=== PATIENT | male | born 1955 | race Caucasian/White ===

== ENCOUNTER 2017-05-02 18:05 | Inpatient (IN) | payer OTHER ==
[2017-05-02 18:14] VITALS: BMI 54.2
--- NOTE | 2017-05-02 18:32 | DR.GENAD ---
HPI - PCP Primary Care Physician: kathryn chamberlain - HPI Comment HPI Comment: PATIENT IS WEAK AND NOT FEELING WELL. - Complaint/Symptoms Chief Complaint Doctors Comments: CHEST PAIN SOB ABD WORSENING EDEMA TIMES 2 DAYS. SLURRED SPEECH ALL DAY GETTING CLEAR NOW. Chief Complaint:: "pt said his o2 has been low he is hurting in his chest and shoulder pain" - Nurses notes reviewed Nurses Notes Review: Yes - Source History Provided: Family Member - Mode of Arrival Mode of Arrival: Ambulatory - Timing Onset of Chief Complaint: 05/01/17 Came on: Gradually - Duration Duration: Constant Duration: Days - Severity Severity: Moderate PMH - PMH Past Medical History: Yes Past Medical History: Diabetes, Hypertension, [place] Past Medical History Comment: kidney prob, lung porb back pain, Past Surgical History: Yes Surgical History: Angioplasty/Stents - Family History History of Family Medical Conditions: Yes Family Medical History: Diabetes Mellitus - Social History Does patient currently use any type of tobacco product: No Have you used tobacco products in the last 12 months: No Type of Tobacco Use: None Does any household member use tobacco: No Alcohol Use: None Do you use any recreational Drugs:: No Lives With: Family Lives Where: Home - infectious screening In the last 2 months have you had wt loss of >10#?: NO Have you had fever, night sweats or hemotysis?: No Have you traveled outside the country in the last 6 months?: No Isolation: Standard ROS - Review of Systems Constitutional: Malaise, Weakness, Fatigue. negative: Chills, Fever Eyes: negative: Eye Pain, Discharge ENTM: negative: Ear Pain, Nose Discharge, Nose Congestion, Throat Pain Respiratoy: Non-Productive Cough, Short of Breath, Wheezing. negative: Hemoptysis Cardiovascular: Chest Pain, Edema Gastrointestinal/Abdominal: negative: Abdominal Pain, Diarrhea, Nausea, Vomiting Genitourinary: negative: Dysuria, Hematuria Neurological: Headache, Weakness, Dizziness, Speech Problem Musculoskeletal: Muscle Pain Integumentary: Change in Color Hematologic/Lymphatic: Easy Bleeding, Easy Bruising Endocrine: Increased Thirst, Increased Urine. negative: Flushing All Other Systems: Reviewed and Negative PE - Vital Signs Vitals: Temperature 98 F Pulse Rate [Apical] 113 Pulse Rate 114 Respiratory Rate 18 Blood Pressure [Right Arm] 163/79 Blood Pressure 162/70 O2 Sat by Pulse Oximetry 96 - General Limitations: No Limitations General Appearance: Alert - Head Head Exam: Normal Inspection - Eyes Eye exam: Normal Appearance - ENT ENT Exam: Normal External Ear Exam External Ear Exam: Normal External Inspection TM/Canal Exam: Bilateral Normal Nose Exam: Normal Nose Exam Mouth Exam: Normal Inspection Throat Exam: Normal Inspection - Neck Neck Exam: Trachea Midline. negative: Tenderness, Meningismus, Lymphadenopathy - Chest Chest Inspection: Symmetric Chest Wall Rise - Respiratory Respiratory Exam: Accessory Muscle Use, Respiratory Distress Respiratory Exam: Bilateral Wheezing, Bilateral Rhonchi, Upper Rhonchi, Lower Wheezing, Lower Rhonchi - Cardiovascular Cardiovascular Exam: Regular Rate, Normal Rhythm, Normal Heart Sounds - Abdominal Exam Abdominal Exam: Normal Bowel Sounds, Soft. negative: Tenderness - Extremities Extremities Exam: Edema - Back Back Exam: Paraspinal Tenderness - Neurologic Neurological Exam: Alert, Oriented X3 - Psychiatric Psychiatric Exam: Normal Affect, Normal Mood - Skin Skin Exam: Erythema MDM - Additional Information Additional Information Obtained From: Family - Differential Diagnosis Differential Diagnosis: CHF, NV, CVA, PULMONARY EDEMA, HYPERCAPNEA, Course - Treatment Treatment: SEE ORDERS. - Education/Counseling Education/Counseling: Patient, Family, Education Educated On: Treatment, Diagnosis ROR - Labs Reviewed Laboratory Results Reviewed?: Yes Result Diagrams: 18 18:48 05/02/17 18:48 Laboratory: WBC 8.0 X10^3/uL (3.6-10.0) 05/02/17 18:48 RBC 4.01 X10^6/uL (4.7-6.0) L 18 18:48 Hgb 11.3 g/dL (13.5-18.0) L 18 18:48 Hct 35.9 % (42.0-54.0) L 1818 18:48 MCV 89.6 fL (80.0-100.0) 18 18:48 MCH 28.2 pg (27.0-34.0) 18 18:48 MCHC 31.5 g/dL (33.0-35.0) L 1818 18:48 RDW 17.4 % (11.6-16.5) H 18 18:48 Plt Count 147 X10^3/uL (150.0-450.0) L 18 18:48 MPV 8.6 fL (7.4-11.0) 18 18:48 Neut % (Auto) 74.4 % (42.0-75.0) 18 18:48 Lymph % (Auto) 16.4 % (21.0-51.0) L 05/02/17 18:48 [place] % (Auto) 7.3 % (0.0-13.0) 05/02/17 18:48 Eos % (Auto) 1.2 % (0.9-2.9) 18 18:48 Baso % (Auto) 0.7 % (0.2-1.0) 05/02/17 18:48 Neut # (Auto) 5.9 x10^3/uL (2.2-4.8) H 05/02/17 18:48 Lymph # (Auto) 1.3 X10^3/uL (1.3-2.9) 05/02/17 18:48 [place] # (Auto) 0.6 x10^3/uL (0.3-0.8) 18 18:48 Eos # (Auto) 0.1 x10^3/uL (0.0-0.2) 05/02/17 18:48 Baso # (Auto) 0.1 X10^3/uL (0.0-0.1) 05/02/17 18:48 Absolute Nucleated RBC 0.1 /100WBC 05/02/17 18:48 Sample Site Lr 05/02/17 19:38 ABG pH 7.330 (7.35-7.45) L 05/02/17 19:38 ABG pCO2 75.0 mmHg (35.0-45.0) H* 05/02/17 19:38 ABG pO2 69.0 mmHg (80.0-100.0) L 05/02/17 19:38 ABG HCO3 39.5 mmol/L (22-26) H* 05/02/17 19:38 ABG O2 Saturation 92.0 % (90-100) 05/02/17 19:38 ABG Base Excess 10.7 mmol/L (-2.0-2.0) H 05/02/17 19:38 Lenny Test Pos 05/02/17 19:38 A-a Gradient 65.0 mmHg 05/02/17 19:38 FiO2 32.000 05/02/17 19:38 Blood Gas Comments Pt [email or web address] 05/02/17 19:38 Sodium 141 mmol/L (136-145) 05/02/17 18:48 Corrected Sodium 142 mmol/L (136-145) 05/02/17 18:48 Potassium 5.2 mmol/L (3.5-5.1) H 05/02/17 18:48 Chloride 104 mmol/L (98-107) 05/02/17 18:48 Carbon Dioxide 33.0 mmol/L (21-32) H 05/02/17 18:48 BUN 43 mg/dL (7-18) H 05/02/17 18:48 Creatinine 1.97 mg/dL (0.70-1.30) H 05/02/17 18:48 Est GFR (MDRD) Af Amer 45 (>60) L 05/02/17 18:48 Est GFR (MDRD) Non-Af 37 (>60) L 05/02/17 18:48 Glucose 123 mg/dL (65-99) H 05/02/17 18:48 Calcium 8.3 mg/dL (8.5-10.1) L 05/02/17 18:48 Corrected Calcium 8.9 mg/dL (8.5-10.1) 05/02/17 18:48 Total Bilirubin 0.50 mg/dL (0.2-1.0) 05/02/17 18:48 AST 16 Units/L (15-37) 05/02/17 18:48 ALT 19 Units/L (12-78) 05/02/17 18:48 Alkaline Phosphatase 97 Units/L (46-116) 05/02/17 18:48 Creatine Kinase 110 Units/L (39-308) 05/02/17 18:48 CK-MB (CK-2) 1.2 ng/mL (0-4.0) 05/02/17 18:48 CK/CKMB % Calc 1.1 % (<4) 05/02/17 18:48 Troponin I < 0.02 ng/mL (0-1.5) 05/02/17 18:48 B-Natriuretic Peptide 203 pg/mL (0-79) H 05/02/17 18:48 Total Protein 8.0 g/dL (6.4-8.2) 05/02/17 18:48 Albumin 3.2 g/dL (3.4-5.0) L 05/02/17 18:48 Globulin 4.8 g/dL (2.5-4.5) H 05/02/17 18:48 Albumin/Globulin Ratio 0.7 Ratio (1.1-2.1) L 05/02/17 18:48 - XRAY XRAY Interpreted by: Radiologist XRAY Findings: REPORT DISCUSS WITH PATIENT AND HIS . - EKG Rhythm: ST (EKG), PSVT (EKG) ST: Normal ( NOTED EKG.) - Diagnosis Discharge Problem: Hypercapnia Chest pain Qualifiers: Chest pain type: precordial pain Qualified Code(s): R07.2 - Precordial pain CHF (congestive heart failure) Qualifiers: Heart failure type: combined systolic and diastolic Heart failure chronicity: acute on chronic Qualified Code(s): I50.43 - Acute on chronic combined systolic (congestive) and diastolic (congestive) heart failure Pulmonary edema Qualifiers: Chronicity: acute Qualified Code(s): J81.0 - Acute pulmonary edema - Discharge Plan Condition: Stable - Follow ups/Referrals Follow ups/Referrals: NFD,None [STAFF PHYSICIAN] - 3 days - Instructions
[2017-05-02 19:01] LABS: BASOPHILS # (AUTO) 0.1 X10^3/uL (0.0-0.1); BASOPHILS % (AUTO) 0.7 % (0.2-1.0); EOSINOPHILS # (AUTO) 0.1 x10^3/uL (0.0-0.2); EOSINOPHILS % (AUTO) 1.2 % (0.9-2.9); HEMATOCRIT 35.9 % (42.0-54.0); HEMOGLOBIN 11.3 g/dL (13.5-18.0); LYMPHOCYTES # (AUTO) 1.3 X10^3/uL (1.3-2.9); LYMPHOCYTES % (AUTO) 16.4 % (21.0-51.0); MEAN CORPUSCULAR HEMOGLOBIN 28.2 pg (27.0-34.0); MEAN CORPUSCULAR HGB CONC 31.5 g/dL (33.0-35.0); MEAN CORPUSCULAR VOLUME 89.6 fL (80.0-100.0); MEAN PLATELET VOLUME 8.6 fL (7.4-11.0); MONOCYTES # (AUTO) 0.6 x10^3/uL (0.3-0.8); MONOCYTES % (AUTO) 7.3 % (0.0-13.0); NEUTROPHILS # (AUTO) 5.9 x10^3/uL (2.2-4.8); NEUTROPHILS % (AUTO) 74.4 % (42.0-75.0); PLATELET COUNT 147 X10^3/uL (150.0-450.0); RED BLOOD COUNT 4.01 X10^6/uL (4.7-6.0); RED CELL DISTRIBUTION WIDTH 17.4 % (11.6-16.5)
[2017-05-02 19:12] LABS: BLOOD UREA NITROGEN 43 mg/dL (7-18); CALCIUM 8.3 mg/dL (8.5-10.1); CHLORIDE 104 mmol/L (98-107); COR NA(FOR HYPERGLY) 142 mmol/L (136-145); CREATININE 1.97 mg/dL (0.70-1.30); SODIUM 141 mmol/L (136-145); TROPONIN I < 0.02 ng/mL (0-1.5); eGFR BLACK RACES 45 (>60); eGFR NON BLACK RACES 37 (>60)
[2017-05-02 19:17] LABS: ALANINE AMINOTRANSFERASE 19 Units/L (12-78); ALBUMIN 3.2 g/dL (3.4-5.0); ALKALINE PHOSPHATASE 97 Units/L (46-116); CKMB % 1.1 % (<4); COR CA(FOR HYPOALB) 8.9 mg/dL (8.5-10.1); CREATINE KINASE 110 Units/L (39-308); CREATINE KINASE MB 1.2 ng/mL (0-4.0)
[2017-05-02 19:19] LABS: ASPARTATE AMINO TRANSFERASE 16 Units/L (15-37)
--- NOTE | 2017-05-02 19:22 | CT ---
HISTORY: Slurred speech Study: CT head without contrast Comparison: None Technique: Multiple axial images were obtained from the vertex to skull base without the administration of IV co ntrast. Reformatted coronal and sagittal planes were produced as well. Findings: Imaging of the brain demonstrates no intracranial hemorrhage, mass effect, or midline shift. No extra -axial fluid collection is identified. There is no CT evidence to suggest acute or early subacute inf arct. The ventricles are not significantly dilated. There are low attenuating foci within the periven tricular white matter, suggesting mild chronic small vessel disease. The basilar cisterns are patent. The bony structures are intact. IMPRESSION: 1. No acute intracranial abnormality evident. Reported By:
[2017-05-02 19:24] LABS: B-TYPE NATRIURETIC PEPTIDE 203 pg/mL (0-79)
[2017-05-02 19:43] LABS: ABG BASE EXCESS 10.7 mmol/L (-2.0-2.0)
[2017-05-02 19:44] LABS: ABG ALLEN TEST POS; ABG HCO3 39.5 mmol/L (22-26)
--- NOTE | 2017-05-02 19:45 | RAD ---
Examination: AP chest History: Chest pain, SOB Findings: Mild cardiomegaly, sternal wires, pulmonary vascular congestion. There is no evidence for p neumonia, pulmonary edema, pleural fluid or pneumothorax. Impression: Cardiomegaly with mild pulmonary vascular congestion. Reported By:
[2017-05-02] MEDS ORDERED: LASIX IVP ONE (20:14)
[2017-05-02] MEDS: LASIX IVP SCH (20:18)
[2017-05-02] MEDS ORDERED: COUMADIN TAB 7.5 MG PO SCH (21:00)
[2017-05-02 21:51] LABS: BILIRUBIN,URINE NEGATIVE (NEGATIVE); BLOOD/HEMOGLOBIN,URINE 2+ (NEGATIVE); GLUCOSE, URINE NEGATIVE (NEGATIVE); KETONES,URINE NEGATIVE (NEGATIVE); LEUKOCYTE ESTERASE ,URINE 1+ (NEGATIVE); NITRITES,URINE NEGATIVE (NEGATIVE); PROTEIN,URINE 1+ (NEGATIVE); UROBILINOGEN,URINE NORMAL (NORMAL)
[2017-05-02 22:05] LABS: APPEARANCE,URINE CLEAR (CLEAR); BACTERIA,URINE NEGATIVE /HPF (NEGATIVE); COLOR,URINE YELLOW (YELLOW); RBC,URINE 0 - 3 /HPF (NONE SEEN); SQUAMOUS EPITHELIAL CELL,UR RARE /HPF (NEGATIVE)
[2017-05-02 22:06] LABS: AMORPHOUS SEDIMENT,UR TRACE /HPF (NEGATIVE)
[2017-05-02] MEDS: ASPIRIN PO ONE ×2 (22:27→22:28)
[2017-05-02] MEDS: LIPITOR TAB 40 MG PO SCH (22:35)
[2017-05-02] MEDS: LOPRESSOR TAB 25 MG PO SCH (22:36)
[2017-05-03] MEDS ORDERED: DUONEB 0.5 MG/3 MG NEB SCH
[2017-05-03] MEDS: DUONEB 0.5 MG/3 MG NEB SCH ×5 (01:09→17:06)
[2017-05-03 02:01] LABS: CKMB % 1.1 % (<4); CREATINE KINASE 95 Units/L (39-308); CREATINE KINASE MB < 1.0 ng/mL (0-4.0); TROPONIN I < 0.02 ng/mL (0-1.5)
[2017-05-03] MEDS: GLUCOTROL PO SCH (06:03)
[2017-05-03 07:20] LABS: BASOPHILS # (AUTO) 0.1 X10^3/uL (0.0-0.1); BASOPHILS % (AUTO) 0.7 % (0.2-1.0); EOSINOPHILS # (AUTO) 0.1 x10^3/uL (0.0-0.2); EOSINOPHILS % (AUTO) 1.2 % (0.9-2.9); HEMATOCRIT 36.6 % (42.0-54.0); HEMOGLOBIN 11.6 g/dL (13.5-18.0); LYMPHOCYTES # (AUTO) 1.4 X10^3/uL (1.3-2.9); LYMPHOCYTES % (AUTO) 16.3 % (21.0-51.0); MEAN CORPUSCULAR HEMOGLOBIN 28.4 pg (27.0-34.0); MEAN CORPUSCULAR HGB CONC 31.7 g/dL (33.0-35.0); MEAN CORPUSCULAR VOLUME 89.5 fL (80.0-100.0); MEAN PLATELET VOLUME 8.7 fL (7.4-11.0); MONOCYTES # (AUTO) 0.5 x10^3/uL (0.3-0.8); MONOCYTES % (AUTO) 5.6 % (0.0-13.0); NEUTROPHILS # (AUTO) 6.7 x10^3/uL (2.2-4.8); NEUTROPHILS % (AUTO) 76.2 % (42.0-75.0); PLATELET COUNT 152 X10^3/uL (150.0-450.0); RED BLOOD COUNT 4.09 X10^6/uL (4.7-6.0); RED CELL DISTRIBUTION WIDTH 17.8 % (11.6-16.5); WHITE BLOOD COUNT 8.8 X10^3/uL (3.6-10.0)
[2017-05-03 07:21] LABS: ALBUMIN 3.3 g/dL (3.4-5.0); CALCIUM 8.2 mg/dL (8.5-10.1); CARBON DIOXIDE 35.7 mmol/L (21-32); COR CA(FOR HYPOALB) 8.8 mg/dL (8.5-10.1); CREATININE 2.14 mg/dL (0.70-1.30); MAGNESIUM 2.2 mg/dL (1.7-2.9); TOTAL PROTEIN 8.3 g/dL (6.4-8.2)
[2017-05-03 07:29] LABS: CREATINE KINASE 97 Units/L (39-308); CREATINE KINASE MB < 1.0 ng/mL (0-4.0); TROPONIN I < 0.02 ng/mL (0-1.5)
[2017-05-03] MEDS: LASIX IVP SCH ×2 (08:48→21:28)
[2017-05-03] MEDS: LOPRESSOR TAB 25 MG PO SCH ×2 (08:49→21:28)
[2017-05-03] MEDS: ISOSORBIDE MONONITRATE ER PO SCH (08:49)
[2017-05-03] MEDS: K-DUR TAB 20 MEQ PO SCH (08:49)
[2017-05-03] MEDS: ZESTRIL TAB 5 MG PO SCH (08:49)
[2017-05-03] MEDS ORDERED: PATIENT'S HOME MEDICATION (Glipizide [Glipizide 10 Mg] 10 MG) PO SCH (09:00)
[2017-05-03] MEDS ORDERED: NS 500 ML IV 500 ML IV ONE (13:56)
[2017-05-03] MEDS ORDERED: PHARMACY CONSULT - DOSE _____ XX SCH (14:00)
[2017-05-03] MEDS: NS 500 ML IV 500 ML IV SCH (14:07)
[2017-05-03] MEDS: DIFLUCAN 100 MG IV (MIX by PHARMACY)* 100 MG/50 ML BAG IV SCH (14:07)
[2017-05-03] MEDS: NYSTATIN POWDER TOP SCH ×2 (16:01→21:28)
--- NOTE | 2017-05-03 18:09 | DR.H&P ---
H&P - History & Physical for Day of: H&P Date: 05/02/17 - Chief Complaint Chief Complaint: chest pain, sob - Allergies Allergies/Adverse Reactions: Allergies Allergy/AdvReac Type Severity Reaction Status Date / Time No Known Drug Allergies Allergy Verified 05/02/17 20:24 - History of Present Illness History of Present Illness: 61 WM ER ADMIT WITH CHEST PAIN, SOB. PT FAMILY REPORTS SLURRED SPEECH EARLIER WHICH HAS RESOLVED UPON ER ARRIVAL. PT HAS PMH OF CAD. PT STATES LAST HEART CATH WAS 4-5 YEARS AGO. PT ADMITTED FOR ICU FOR R/ O AMI, EVALUATION OF SOB. - Past Medical History Past Medical History: Coronary Artery Disease, Diabetes, Hypertension, [place] - Past Surgical History Surgical History: Angioplasty/Stents - Family History Family Medical History: Diabetes Mellitus - Social History Does patient currently use any type of tobacco product: No Have you used tobacco products in the last 12 months: No Type of Tobacco Use: None Does any household member use tobacco: No Alcohol Use: None Drug Use: None - Medications Home Medications: Atorvastatin Calcium [Lipitor] 40 mg PO HS 05/02/17 [History Confirmed 05/02/17] Glipizide [Glipizide 10 mg] 10 mg PO DAILY 05/02/17 [History Confirmed 05/02/17] Isosorbide Mononitrate ER [ISOSORBIDE MONOnitrate ER 60 MG *] 60 mg PO DAILY [History Confirmed 05/02/17] Lisinopril [ZESTRIL *] 5 mg PO DAILY 05/02/17 [History Confirmed 05/02/17] Metoprolol Tartrate [Lopressor Tab 25 mg] 25 mg PO BID 05/02/17 [History Confirmed 05/02/17] Potassium Chloride 20 meq PO DAILY 05/02/17 [History Confirmed 05/02/17] Warfarin Sodium [Coumadin Tab 10 mg] 10 mg PO HS 05/02/17 [History Confirmed ] - Review of Systems Constitutional: No Symptoms Reported Eyes: No Symptoms Reported ENT: No Symptoms Reported Respiratory: SOB with Excertion Cardiovascular: Chest Pain, Edema Gastrointestinal: No Symptoms Reported Genitourinary: No Symptoms Reported Musculoskeletal: No Symptoms Reported Skin: Rash Neurological: Weakness - Physical Exam Vital Signs: Temperature 98.8 F Pulse Rate [Apical] 119 Pulse Rate 102 Respiratory Rate 21 Blood Pressure [Left Arm] 123/59 Blood Pressure [Right Arm] 190/88 Blood Pressure 162/70 O2 Sat by Pulse Oximetry 94 Oriented: Normal Eyes: Normal Ear: Normal Nose: Normal Throat: Normal Respiratory: RLL Diminished, LLL Diminished Cardiovascular: Normal, Edema : Normal Auscultation: Bowel Sounds: Normal Tenderness: Normal Skin: Rash (BILATERAL GROIN AND LOWER ABD SKIN FOLDS), Red Musculoskeletal: Back:Thoracic, Back:Lumbar Psychiatric: Anxiety Affect: Anxious Speech Pattern: Clear, Appropriate - Assessment/Plan (1) Chest pain Qualifiers: Chest pain type: precordial pain Qualified Code(s): R07.2 - Precordial pain Status: Acute Plan: ADMIT, CARIDAC PROFILE, EKGS, AM CXR. HTN MONITORING. IV LASIX, STRICT I & OS RESUME. HOME MEDS, (2) CHF (congestive heart failure) Qualifiers: Heart failure type: combined systolic and diastolic Heart failure chronicity: acute on chronic Qualified Code(s): I50.43 - Acute on chronic combined systolic (congestive) and diastolic (congestive) heart failure Status: Acute (3) Pulmonary edema Qualifiers: Chronicity: acute Qualified Code(s): J81.0 - Acute pulmonary edema Status: Acute
[2017-05-03] MEDS: LIPITOR TAB 40 MG PO SCH (21:28)
[2017-05-04] MEDS: DUONEB 0.5 MG/3 MG NEB SCH ×4 (00:43→17:00)
[2017-05-04 06:22] LABS: BASOPHILS % (AUTO) 0.5 % (0.2-1.0); EOSINOPHILS # (AUTO) 0.2 x10^3/uL (0.0-0.2); EOSINOPHILS % (AUTO) 2.5 % (0.9-2.9); HEMATOCRIT 34.5 % (42.0-54.0); HEMOGLOBIN 11.1 g/dL (13.5-18.0); LYMPHOCYTES # (AUTO) 1.7 X10^3/uL (1.3-2.9); LYMPHOCYTES % (AUTO) 21.7 % (21.0-51.0); MEAN CORPUSCULAR HEMOGLOBIN 28.7 pg (27.0-34.0); MEAN CORPUSCULAR HGB CONC 32.1 g/dL (33.0-35.0); MEAN CORPUSCULAR VOLUME 89.3 fL (80.0-100.0); MEAN PLATELET VOLUME 8.8 fL (7.4-11.0); MONOCYTES # (AUTO) 0.6 x10^3/uL (0.3-0.8); MONOCYTES % (AUTO) 8.2 % (0.0-13.0); NEUTROPHILS # (AUTO) 5.3 x10^3/uL (2.2-4.8); NEUTROPHILS % (AUTO) 67.1 % (42.0-75.0); PLATELET COUNT 140 X10^3/uL (150.0-450.0); RED BLOOD COUNT 3.87 X10^6/uL (4.7-6.0); RED CELL DISTRIBUTION WIDTH 17.4 % (11.6-16.5); WHITE BLOOD COUNT 7.8 X10^3/uL (3.6-10.0)
[2017-05-04 06:30] LABS: CARBON DIOXIDE 34.7 mmol/L (21-32); COR CA(FOR HYPOALB) 8.8 mg/dL (8.5-10.1); CREATININE 2.16 mg/dL (0.70-1.30); TOTAL PROTEIN 7.7 g/dL (6.4-8.2)
[2017-05-04] MEDS: GLUCOTROL PO SCH (07:04)
--- NOTE | 2017-05-04 07:40 | RAD ---
Exam: Frontal view of the chest History: Chest pain. Shortness of breath. Comparison: Previous chest radiograph from 05/02/2017 Findings: Cardiomegaly with mild increased degree of vascular congestion is seen. Atelectasis may be present at the lung bases. IMPRESSION: Cardiomegaly with slight interval increase in degree of pulmonary vascular congestion Reported By:
[2017-05-04] MEDS: DIFLUCAN 100 MG IV (MIX by PHARMACY)* 100 MG/50 ML BAG IV SCH (08:29)
[2017-05-04] MEDS: ISOSORBIDE MONONITRATE ER PO SCH (08:29)
[2017-05-04] MEDS: LOPRESSOR TAB 25 MG PO SCH ×2 (08:30→20:54)
[2017-05-04] MEDS: ZESTRIL TAB 5 MG PO SCH (08:30)
[2017-05-04] MEDS: K-DUR TAB 20 MEQ PO SCH (08:30)
[2017-05-04] MEDS: LASIX IVP SCH ×2 (08:38→20:54)
[2017-05-04] MEDS: NYSTATIN POWDER TOP SCH ×4 (08:38→21:04)
[2017-05-04] MEDS: NS 500 ML IV 500 ML IV SCH (13:15)
[2017-05-04] MEDS: LIPITOR TAB 40 MG PO SCH (20:54)
[2017-05-05] MEDS: DUONEB 0.5 MG/3 MG NEB SCH ×3 (00:50→11:21)
[2017-05-05 06:21] LABS: BASOPHILS % (AUTO) 0.4 % (0.2-1.0); EOSINOPHILS # (AUTO) 0.2 x10^3/uL (0.0-0.2); EOSINOPHILS % (AUTO) 2.4 % (0.9-2.9); HEMATOCRIT 35.4 % (42.0-54.0); HEMOGLOBIN 11.3 g/dL (13.5-18.0); LYMPHOCYTES # (AUTO) 1.4 X10^3/uL (1.3-2.9); LYMPHOCYTES % (AUTO) 16.4 % (21.0-51.0); MEAN CORPUSCULAR HEMOGLOBIN 28.4 pg (27.0-34.0); MEAN CORPUSCULAR VOLUME 88.8 fL (80.0-100.0); MEAN PLATELET VOLUME 8.6 fL (7.4-11.0); MONOCYTES # (AUTO) 0.6 x10^3/uL (0.3-0.8); MONOCYTES % (AUTO) 6.9 % (0.0-13.0); NEUTROPHILS # (AUTO) 6.2 x10^3/uL (2.2-4.8); NEUTROPHILS % (AUTO) 73.9 % (42.0-75.0); PLATELET COUNT 151 X10^3/uL (150.0-450.0); RED BLOOD COUNT 3.98 X10^6/uL (4.7-6.0); RED CELL DISTRIBUTION WIDTH 17.6 % (11.6-16.5); WHITE BLOOD COUNT 8.4 X10^3/uL (3.6-10.0)
[2017-05-05] MEDS: GLUCOTROL PO SCH (06:34)
[2017-05-05 06:37] LABS: CALCIUM 8.2 mg/dL (8.5-10.1); CARBON DIOXIDE 37.5 mmol/L (21-32); CREATININE 2.1 mg/dL (0.70-1.30); TOTAL PROTEIN 7.7 g/dL (6.4-8.2)
[2017-05-05] MEDS: LASIX IVP SCH (08:49)
[2017-05-05] MEDS: DIFLUCAN 100 MG IV (MIX by PHARMACY)* 100 MG/50 ML BAG IV SCH (08:50)
[2017-05-05] MEDS: K-DUR TAB 20 MEQ PO SCH (08:50)
[2017-05-05] MEDS: ZESTRIL TAB 5 MG PO SCH (08:50)
[2017-05-05] MEDS: LOPRESSOR TAB 25 MG PO SCH (08:50)
[2017-05-05] MEDS: ISOSORBIDE MONONITRATE ER PO SCH (08:50)
[2017-05-05] MEDS: NYSTATIN POWDER TOP SCH ×2 (08:52→13:46)
[2017-05-05] MEDS ORDERED: CORDARONE TAB 200 MG PO SCH (09:00)
[2017-05-05] MEDS: NS 500 ML IV 500 ML IV SCH (13:46)
[2017-05-05 15:09] VITALS: BP 95/65
== END 2017-05-05 15:40 | DRG 313 ==
LOC: ER 18:16 → ICU 20:17 → UNDOADMOB 20:17 → OBSVTOIN 05-04 08:30
PROVIDERS: ADMIT Internal Medicine; ATTEND Internal Medicine
DX: R07.2 Precordial pain (principal); I50.43 Acute on chronic combined systolic (congestive) and diastolic (congestive) heart failure; R06.02 Shortness of breath; R60.0 Localized edema; J81.0 Acute pulmonary edema; E11.65 Type 2 diabetes mellitus with hyperglycemia; I10 Essential (primary) hypertension; R06.89 Other abnormalities of breathing; R94.31 Abnormal electrocardiogram [ECG] [EKG]; I25.10 Atherosclerotic heart disease of native coronary artery without angina pectoris; J44.9 Chronic obstructive pulmonary disease, unspecified; M15.8 Other polyosteoarthritis; R79.1 Abnormal coagulation profile; E66.01 Morbid (severe) obesity due to excess calories
CPT/HCPCS: 36415; 36600; 70450; 71045; 80053; 80061; 81001; 82550; 82553; 82803; 83735; 83880; 84484; 85025; 85610; 85730; 93005; 93010; 94640; 96365; 96374; 99284; A4216; A4222; G0378; J1940; J7620